=== PATIENT | female | born 1940 | race Caucasian/White ===

== ENCOUNTER → 2021-06-09 | Outpatient (CLI) | payer MEDICARE, OTHER ==
[~2021-06-09] MED LIST: FAMOTIDINE20 MG PO; HYDROCHLOROTHIA25 MG PO; LEVAQUIN500 MG PO; LEVOTHYROXINE50 MCG PO; LOSARTAN POTAS100 MG PO; METOPROLOL SUCC50 MG PO; OMEPRAZOLE40 MG PO
== END ==
LOC: RAD 08:45
PROVIDERS: ATTEND Nurse Practitioner Adult Health
DX: R60.0 Localized edema (principal)
CPT/HCPCS: 93970